=== PATIENT | female | born 1975 | race Caucasian/White ===

== ENCOUNTER 2020-05-27 09:50 | Outpatient (REF) | payer OTHER, SELFPAY ==
--- NOTE | ~2020-05-27 | XR_ITS ---
EXAMINATION: XR BILATERAL HIPS CLINICAL INFORMATION: Bilateral hip x-rays COMPARISON: None TECHNIQUE: 2 views of the chest FINDINGS: Bone alignment is normal. No fracture or dislocation is seen. There is mild bilateral hip arthritis with superior lateral acetabular osteophytes. There are soft tissue calcifications in the pelvis. XR/XR hips ANA min 3V IMPRESSION: Mild bilateral hip arthritis.
== END 2020-05-27 09:51 | disposition home or self-care (01) ==
LOC: HO.XRAY 09:50
PROVIDERS: PCP Internal Medicine; Visit Provider Anesthesiology
DX: M16.0 Bilateral primary osteoarthritis of hip (principal); M96.1 Postlaminectomy syndrome, not elsewhere classified; M47.816 Spondylosis without myelopathy or radiculopathy, lumbar region; M46.1 Sacroiliitis, not elsewhere classified; G43.109 Migraine with aura, not intractable, without status migrainosus; Z79.899 Other long term (current) drug therapy
CPT/HCPCS: 73522; 99202

== ENCOUNTER 2020-06-05 17:44 | Outpatient (REF) | payer OTHER, SELFPAY ==
--- NOTE | ~2020-06-05 | MR_ITS ---
EXAMINATION: MR LUMBAR SPINE WITHOUT CONTRAST CLINICAL INFORMATION: Lower back pain. Bilateral leg pain with right leg numbness. Bilateral toe numbness. Surgery on a herniated disc in 2010. COMPARISON: None TECHNIQUE: MRI of the lumbar spine was obtained using routine sequences without contrast. FINDINGS: VERTEBRAL BODIES AND PARASPINAL STRUCTURES: Normal vertebral body alignment. The lumbar lordosis is maintained. No acute fracture or subluxation. No loss of vertebral body height. Loss of intervertebral disc height with disc desiccation at L5-S1. No abnormal marrow signal. No evidence of acute osseous injury. The visualized paraspinal soft tissues are unremarkable. CONUS MEDULLARIS AND CAUDA EQUINA: Normal, terminating at the level of L1. SPINAL LEVELS: T12-L1: No significant disc bulge. No central canal or neural foraminal stenosis. L1-L2: No significant disc bulge. No central canal or neural foraminal stenosis. L2-L3: No significant disc bulge. No central canal or neural foraminal stenosis. L3-L4: No significant disc bulge. Bilateral facet arthropathy and thickening of the ligamentum flavum without central canal or neural foraminal stenosis. L4-L5: No significant disc bulge. Bilateral facet arthropathy and thickening of the ligamentum flavum without central canal or neural foraminal stenosis. L5-S1: Shallow posterior central disc protrusion with associated annular fissuring. Bilateral facet arthropathy and thickening of the ligamentum flavum with mild bilateral neural foraminal stenosis. MR/MR lumbar spine wo con IMPRESSION: 1. Degenerative disc disease at L5-S1 with a shallow posterior central disc protrusion and associated annular fissuring. Bilateral facet arthropathy and thickening of the ligamentum flavum resulting in mild bilateral neural foraminal stenosis. 2. Bilateral facet arthropathy and thickening of the ligamentum flavum at L3-L4 and L4-L5 without significant central canal or neural foraminal stenosis.
== END 2020-06-05 17:45 | disposition home or self-care (01) ==
LOC: HO.MRI 17:44
PROVIDERS: Visit Provider Anesthesiology
DX: M47.816 Spondylosis without myelopathy or radiculopathy, lumbar region (principal); M96.1 Postlaminectomy syndrome, not elsewhere classified
CPT/HCPCS: 72148

== ENCOUNTER → 2020-07-04 11:27 | Outpatient (BNVA) | payer OTHER, SELFPAY | PROVIDERS: PCP Internal Medicine; Visit Provider Anesthesiology ==

== ENCOUNTER 2020-07-10 11:26 | Outpatient (REF) | payer OTHER, SELFPAY | END 2020-07-10 11:27 | disposition home or self-care (01) | LOC: HO.LAB 11:26 | PROVIDERS: Visit Provider Internal Medicine | DX: Z20.822 Contact with and (suspected) exposure to COVID-19 (principal) | CPT/HCPCS: C9803; U0003; U0005 ==

== ENCOUNTER 2020-07-23 06:26 | Outpatient (REF) | payer OTHER, SELFPAY | END 2020-07-23 06:27 | disposition home or self-care (01) | LOC: HO.RADIR 06:26 | PROVIDERS: Visit Provider Anesthesiology | DX: Z13.89 Encounter for screening for other disorder (principal) ==

== ENCOUNTER 2021-05-14 12:17 | Outpatient (REF) | payer OTHER, SELFPAY ==
[2021-05-14 12:52] LABS: COVID-19 Test Negative (Negative)
== END 2021-05-14 12:18 | disposition home or self-care (01) ==
LOC: HO.LAB 12:17
PROVIDERS: Visit Provider Internal Medicine
DX: Z20.822 Contact with and (suspected) exposure to COVID-19 (principal)
CPT/HCPCS: 87635; C9803

== ENCOUNTER 2023-12-30 10:24 | Emergency (ER) | payer OTHER, SELFPAY ==
--- NOTE | ~2023-12-30 | CT_ITS ---
EXAMINATION: CT ABDOMEN AND PELVIS WITHOUT CONTRAST CLINICAL INFORMATION: Right flank pain. COMPARISON: None available. TECHNIQUE: Multidetector volumetric imaging was performed from the superior aspect of the liver through the pubic symphysis. No IV or oral contrast. Sagittal and coronal reformatted images were obtained on the technologist's workstation. This CT examination was performed using dose optimization techniques as appropriate, variously including the following: *Automated exposure control *Adjustment of mA and/or kV according to patient size (this includes techniques or standardized protocols for targeted exams where dose is matched to indication/reason for exam; i.e. extremities or head) *Use of iterative reconstruction technique DLP: 572 mGy-cm FINDINGS: LUNG BASES: Clear bilaterally. Normal heart size. GE junction. Normal. No effusions. LIVER, GALLBLADDER, AND BILIARY TREE: The liver is normal in size, shape, and attenuation. No focal hepatic lesion or biliary ductal dilatation is present. Gallbladder is surgically absent. PANCREAS: Unremarkable. SPLEEN: Unremarkable. ADRENAL GLANDS: Unremarkable. KIDNEYS AND URETERS: There is no hydronephrosis or hydroureter of either kidney. There are no masses or cysts. In the inferior pole left kidney, there is a 3 mm nonobstructing calculus, and a tiny 2 mm nonobstructing calculus in the left midpole. There are no right renal calculi. Ureters are normal in caliber and course. BLADDER: Suboptimally distended. There is a calculus present measuring 1.1 cm, within the base of the bladder interposed between the urethral sphincter and the urinary bladder lumen. No wall thickening or inflammation. GASTROINTESTINAL TRACT: No acute finding. Normal stomach and duodenum. Normal appendix. Normal small bowel. Normal colon, rectum. ABDOMINAL WALL: No significant hernia is appreciated. Injection granulomata right buttock region. LYMPH NODES: No abnormal lymphadenopathy. VASCULAR: Unremarkable. PELVIC VISCERA: There has been a hysterectomy. No adnexal masses. OSSEOUS STRUCTURES: No acute or suspicious findings. CT/CT abdomen pelvis wo IV con IMPRESSION: 1. No acute abdominal or pelvic abnormality. 2. Tiny nonobstructing left renal calculi. 3. There is a 1.1 cm calculus interposed between the base of the bladder and the right superior aspect of the urethral sphincter muscles. This does not appear to definitively lie within the bladder lumen. This is likely of no clinical significance. 4. Cholecystectomy. 5. Hysterectomy. Electronically signed by: Tai Parks MD 12/30/2023 01:23 PM EDT
[2023-12-30 10:29] VITALS: BP 118/72; PULSE 89; O2SAT 99
[2023-12-30 10:33] VITALS: BP 106/78; PULSE 71; RESP 16; TEMP 36.4; O2SAT 98; BMI 27.1
--- NOTE | 2023-12-30 11:04 | ED_ITS ---
HPI - General Adult General Chief complaint: General Medical Stated complaint: ABD PAIN,ANDINO/MIGRAINE PER EMS History of Present Illness HPI narrative: Patient is 48-year-old female with a history of migraine headaches in the past. Now also has abdominal pain. The headache is frontal in nature very similar to previous bouts of migraine. It is dull. Associated with some nausea. Patient from home. None of her medication at home work. Came to the ED. Patient denies any chest pain. Denies any focal weakness. Did have some abdominal pain mostly on the right side. It is dull in nature. Not associated with any diaphoresis positive nausea positive vomiting. No pain on urination. Patient is from home. Related Data Home Medications ?Medication ?Instructions ?Recorded ?Confirmed acetaminophen 325 mg tablet 650 mg PO Q6H PRN 05/27/20 cetirizine 10 mg tablet 10 mg PO DAILY PRN 05/27/20 diazepam 10 mg tablet 10 mg PO TID PRN 05/27/20 dronabinol 2.5 mg capsule 2.5 mg PO BID 05/27/20 lubiprostone 24 mcg capsule 24 mcg PO BID 05/27/20 (Amitiza) morphine 15 mg tablet,extended 15 mg PO Q8H 05/27/20 release oxycodone 5 mg tablet 5 mg PO Q8H PRN 05/27/20 Allergies Allergy/AdvReac Type Severity Reaction Status Date / Time amitriptyline Allergy itching,red Verified 12/30/23 10:45 ness,rash buprenorphine [From Butrans] Allergy skin Verified 12/30/23 10:45 irritation duloxetine [From Cymbalta] Allergy rash,tachyc Verified 12/30/23 10:45 ardia gadoterate meglumine Allergy diarrhea Verified 12/30/23 10:45 [From Dotarem] gluten Allergy constipatio Verified 12/30/23 10:45 n iodine Allergy rash/swelli Verified 12/30/23 10:45 ng lamotrigine [From Lamictal] Allergy tachycardia Verified 12/30/23 10:45 sumatriptan Allergy tachycardia Verified 12/30/23 10:45 topiramate [From Topamax] Allergy migraines,v Verified 12/30/23 10:45 omiting trazodone Allergy unknown Verified 12/30/23 10:45 lactose AdvReac abdominal Verified 12/30/23 10:45 pain Review of Systems 2 Review of Systems: Positive abdominal pain. Positive headache Yes all other systems are reviewed and are negative [facility] Past Medical History Attestation statement: The following information was validated with the patient. Medical History Migraine aura without headache Bilateral hip joint arthritis Sacroiliitis Spondylosis of lumbar spine Postlaminectomy syndrome, lumbar Social History Social History Smoked in Last 30 Days: No Use of substances other than those prescribed or required for medical reasons: No Advance Directives: No Advance Directives Information Provided: Yes Patient : No Physical Exam ED Vital Signs: Vital Signs - 24 hr 12/30/23 10:33 Temperature 97.5 F Pulse Rate 71 Respiratory Rate 16 Blood Pressure 106/78 Pulse Oximetry 98 Oxygen Delivery Method Room Air BMI result Body Mass Index 27.1 Appearance: Alert. Oriented X3. No acute distress. Eyes: Pupils equal, round and reactive to light. ENT: Pharynx normal. Neck: Normal inspection. Neck supple. No lymph nodes noted. No crepitus CVS: Normal heart rate and rhythm. Pulses normal. Normal S1 and S2 Respiratory: No respiratory distress. Breath sounds normal. No Wheezing. No rales Abdomen: Soft and nontender. No rigidity. No distention. good BS x4 Skin: Skin warm and dry. Normal skin color. Normal skin turgor. Extremities: No lower extremity edema. Neurovascular intact to all extremities. No Lacerations. No Rash Neuro: Oriented X 3. No motor deficit. No sensory deficit. Moving all extermities. No slurred speech Medications Administered Discontinued Medications Generic Name Dose Route Start Last Admin Trade Name Freq PRN Reason Stop Dose Admin Diphenhydramine HCl 50 mg 12/30/23 11:03 12/30/23 12:05 Diphenhydramine Hcl 50 Mg/Ml Vial IVPUSH 12/30/23 11:04 50 mg ONCE ONE Administration Sodium Chloride 1,000 mls @ 999 mls/hr 12/30/23 11:15 12/30/23 12:21 Ns IV 12/30/23 12:15 Infused .Q1H1M ANEUDY Infusion Ketorolac Tromethamine 30 mg 12/30/23 11:03 12/30/23 12:08 Ketorolac Tromethamine 30 Mg/Ml Vial IVPUSH 12/30/23 11:04 30 mg ONCE ONE Administration Metoclopramide HCl 10 mg 12/30/23 11:03 12/30/23 12:09 Metoclopramide Hcl 10 Mg/2 Ml Vial IVPUSH 12/30/23 11:04 10 mg ONCE ONE Administration Ondansetron HCl 4 mg 12/30/23 11:03 12/30/23 12:14 Ondansetron Hcl 4 Mg/2 Ml Vial IVPUSH 12/30/23 11:04 Not Given ONCE ONE Medical Decision Making Medical Decision Making MDM Narrative: I reviewed radiology's reading of the CT scan abdomen pelvis there was no acute pathology. Patient given migraine treatment with good resolution of symptoms. Has a history of migraine pain is very similar to previous bouts it is associated with nausea which has subsided after nausea medications. Will discharge patient home there is no fever no chills to suggest patient has meningitis. Neurologically intact. Symptoms not consistent with having subarachnoid hemorrhage. Patient to be discharged home Differential Diagnosis Differential Diagnoses: The differential diagnosis associated with the presentation includes Migraine headache, abdominal pain, intracranial bleed Admission/Observation Consideration of admission/observation: Escalation of care including admission/observation considered Lab Data [facility] Lab Attestation statement: I reviewed the patient's lab results. 12/30/23 11:13 12/30/23 11:13 Labs: Lab Results 12/30/23 12/30/23 Range/Units 11:13 12:14 WBC 6.6 Cancelled (4.8-10.8) X10*3/uL RBC 4.56 Cancelled (4.20-5.50) X10*6/uL Hgb 12.7 Cancelled (12.0-16.0) g/dl Hct 38.7 Cancelled (37.0-47.0) % MCV 84.9 Cancelled (80.0-98.0) fL MCH 27.9 Cancelled (27.0-33.0) pg MCHC 32.8 Cancelled (31.0-35.0) g/dl RDW 13.4 Cancelled (11.0-16.0) % Plt Count 242 Cancelled (160-400) X10*3/uL MPV 10.0 Cancelled (9.4-12.3) fL Immature Gran % (Auto) 0.2 Cancelled (0.0-0.4) % Neut % (Auto) 51.7 Cancelled (45-73) % Lymph % (Auto) 38.8 Cancelled (20-40) % Chase % (Auto) 6.5 Cancelled (2-11) % Eos % (Auto) 2.3 Cancelled (0-4) % Baso % (Auto) 0.5 Cancelled (0-2) % Lymph # (Auto) 2.6 Cancelled (1.2-4.9) X10*3/uL Chase # (Auto) 0.4 Cancelled (0.1-1.2) X10*3/uL Eos # (Auto) 0.2 Cancelled (0.0-0.4) X10*3/uL Baso # (Auto) 0.0 Cancelled (0.0-0.2) X10*3/uL Abs Immat Gran (auto) 0.01 Cancelled (0.00-0.03) X10*3/uL Absolute Neuts (auto) 3.4 Cancelled (2.0-8.3) x10*3/uL Absolute Nucleated RBC 0.000 Cancelled (0.0-0.012) X10*3/uL Nucleated RBC % (auto) 0.0 Cancelled (0.0-0.2) /100WBC Hold Purple Top SEE NOTE Sodium 139 (135-145) mmol/L Potassium 4.7 (3.3-5.1) mmol/L Chloride 109 H (96-108) mmol/L Carbon Dioxide 21 L (22-29) mmol/L Anion Gap 14 (12-20) BUN 13 (9-16) mg/dL Creatinine 0.83 (0.5-1.4) mg/dL Estim Creat Clear Calc 90.4 Estimated GFR > 60 Random Glucose 90 (60-115) mg/dL Calcium 9.2 (8.4-10.2) mg/dL Total Bilirubin 0.3 (0.0-1.0) mg/dL Direct Bilirubin 0.1 (0.0-0.5) mg/dL AST 88 H (5-31) U/L ALT 88 H (0-31) U/L Alkaline Phosphatase 68 (39-117) U/L Total Protein 7.7 (6.5-8.0) g/dL Albumin 4.1 (3.5-5.0) g/dL Lipase 8 (8-78) U/L Independent Interpretation I performed an independent interpretation of an: CT Scan (Patient's CT scan to me was grossly negative) Radiology Impression Discussion of test interpretation with radiology: I have reviewed the radiologist's reading. Chronic Conditions Abdominal pain Social Determinants Patient?s care significantly limited by Social Determinants of Health including: Problems related to primary support group Discharge Plan Discharge Clinical Impression: Headache, migraine, Abdominal pain Patient Disposition: Home, Self-Care Instructions: Abdominal Pain (ED), Migraine Headache (ED) Referrals: Freddie Lam MD [Primary Care Provider] - 01/04/24 Print Language: Kyrgyz
[2023-12-30] MEDS: 0.9 % Sodium Chloride 1,000 ML 999 ML IV (11:19)
[2023-12-30 11:22] LABS: MANUAL DIFF FLAG NO
[2023-12-30 11:27] LABS: Basophils Percent Auto 0.5 % (0-2); Eosinophils Absolute Auto 0.2 X10*3/uL (0.0-0.4); Eosinophils Percent Auto 2.3 % (0-4); Hematocrit 38.7 % (37.0-47.0); Hemoglobin 12.7 g/dl (12.0-16.0); Imm Gran Abs Auto 0.01 X10*3/uL (0.00-0.03); Imm Gran Pct Auto 0.2 % (0.0-0.4); Lymphocytes Absolute Auto 2.6 X10*3/uL (1.2-4.9); Lymphocytes Percent Auto 38.8 % (20-40); Mean Corpuscular HGB Conc 32.8 g/dl (31.0-35.0); Mean Corpuscular Hemoglobin 27.9 pg (27.0-33.0); Mean Corpuscular Volume 84.9 fL (80.0-98.0); Monocytes Absolute Auto 0.4 X10*3/uL (0.1-1.2); Monocytes Percent Auto 6.5 % (2-11); Neutrophils Absolute Auto 3.4 x10*3/uL (2.0-8.3); Neutrophils Percent Auto 51.7 % (45-73); Platelet Count 242 X10*3/uL (160-400); Red Blood Count 4.56 X10*6/uL (4.20-5.50); Red Cell Distribution Width 13.4 % (11.0-16.0); White Blood Count 6.6 X10*3/uL (4.8-10.8)
[2023-12-30 11:37] LABS: Lipase 8 U/L (8-78)
[2023-12-30] MEDS: diphenhydrAMINE HCL 50 MG/ML VIAL IVPUSH (12:05)
[2023-12-30] MEDS: Ketorolac Tromethamine 30 MG/ML VIAL IVPUSH (12:08)
[2023-12-30] MEDS: Metoclopramide HCl 10 MG/2 ML VIAL IVPUSH (12:09)
[2023-12-30 12:43] LABS: Alanine Aminotransferase 88 U/L (0-31); Albumin Level 4.1 g/dL (3.5-5.0); Alkaline Phosphatase 68 U/L (39-117); Anion Gap 14 (12-20); Aspartate Amino Transferase 88 U/L (5-31); Bilirubin Direct 0.1 mg/dL (0.0-0.5); Bilirubin Total 0.3 mg/dL (0.0-1.0); Blood Urea Nitrogen 13 mg/dL (9-16); Calcium 9.2 mg/dL (8.4-10.2); Carbon Dioxide 21 mmol/L (22-29); Chloride 109 mmol/L (96-108); Creatinine Clr Calc Pharmacy 90.4; Estimated Glomerular Filt Rate > 60; Glucose Random 90 mg/dL (60-115); Potassium 4.7 mmol/L (3.3-5.1); Sodium 139 mmol/L (135-145); Total Protein 7.7 g/dL (6.5-8.0)
[2023-12-30 14:38] VITALS: BP 106/78; PULSE 71; RESP 16; TEMP 36.4; O2SAT 98
== END 2023-12-30 14:41 | disposition home or self-care (01) ==
PROVIDERS: Emergency Provider Emergency Medicine Emergency Medical Services; PCP Internal Medicine
DX: G43.909 Migraine, unspecified, not intractable, without status migrainosus (principal); R10.9 Unspecified abdominal pain; R11.2 Nausea with vomiting, unspecified
CPT/HCPCS: 36415; 74176; 80053; 82248; 83690; 85025; 96361; 96374; 96375; 99284; J1200; J1885; J2765

== ENCOUNTER → 2023-12-30 11:03 | Outpatient (BNV) | payer OTHER, SELFPAY | PROVIDERS: Emergency Provider Emergency Medicine Emergency Medical Services; PCP Internal Medicine; Visit Provider Radiology Diagnostic Radiology | DX: R10.9 Unspecified abdominal pain (principal) | CPT/HCPCS: 74176 ==

== ENCOUNTER 2024-10-31 14:36 | Emergency (ER) | payer OTHER, SELFPAY ==
--- NOTE | ~2024-10-31 | XR_ITS ---
EXAMINATION: XR ABDOMEN KUB CLINICAL INDICATION: no BM x10 days, vomiting COMPARISON: None available. TECHNIQUE: AP view of the abdomen. FINDINGS: Patient's large body habitus. There is gas throughout the intestine. No air-fluid levels. No gross free air beneath diaphragm. Vascular clips right upper quadrant abdomen likely laparoscopic cholecystectomy procedure. S-shaped curvature of the lumbar spine which could be positional. Degenerative changes in the coxofemoral joints and symphysis pubis. XR/XR KUB IMPRESSION: No intestinal obstruction pattern. Electronically signed by: Michael Vail MD 10/31/2024 03:18 PM EDT
--- NOTE | ~2024-10-31 | CT_ITS ---
CLINICAL HISTORY: diffuse abd pain r o colitis CT abdomen and pelvis with contrast Comparison: CT/OR/SR - CT ABDOMEN PELVIS WITHOUT IV CONTRAST - 12/30/23 11:15 EDT Findings: Mild atelectasis scattered pulmonary nodules in the lingula and left lower lobe measuring no more than 2 mm. Per Fleischner criteria: Low-risk patients: No routine follow-up required. High-risk patients: Optional CT at 12 months. Hepatomegaly. Ill-defined possible small 6 mm cystic focus proximal pancreas best appreciated on coronal image 31. Finding is nonspecific. The majority of the pancreas is obscured from visualization by the overlying bowel gas. Small left-sided hypodense renal cysts. No urolithiasis or significant hydronephrosis Mildly diffuse colonic mural thickening with mucosal hyperemia and air-fluid levels throughout may reflect early colitis. No bowel obstruction. Post hysterectomy. Normal appendix. Mildly distended bladder. The bones are intact. Right-sided subcutaneous calcifications along the posterior hip. Postcholecystectomy. IMPRESSION: 1. Possible early mildly diffuse colitis. 2. Additional findings described. This document has been electronically signed by: Juan Jose Donovan MD on 10/31/2024 18:58:01
[2024-10-31 14:41] VITALS: BP 134/85; PULSE 92; RESP 16; TEMP 36.8; O2SAT 100; BMI 27.8
--- NOTE | 2024-10-31 14:48 | ED.ABDPAIN ---
HPI - Abdominal Pain General Chief Complaint: Abdominal Pain Stated Complaint: constipation, abd pain Time Seen by Provider: 10/31/24 15:42 Source: patient and family Mode of arrival: ambulatory Limitations: language barrier (pressure vessel inspector used) History of Present Illness ED Provider: Michelle maddox HPI narrative: 49-year-old female here today states she has not pooped in 10 days states her abdomen is tender distended intermittent some liquid after using multiple [id number] remedies but has not had a real bowel movement. She has a history of constipation but usually has bowel movement 2 days. For the past 2 days she has been vomiting and not really eating or drinking because she is in so much pain. She denies any fevers chills chest pain respiratory distress. Pain is only getting worse. Gradual onset of symptoms. MD elicited complaint: abdominal pain Related Data Home Medications ?Medication ?Instructions ?Recorded ?Confirmed acetaminophen 325 mg tablet 650 mg PO Q6H PRN 05/27/20 cetirizine 10 mg tablet 10 mg PO DAILY PRN 05/27/20 diazepam 10 mg tablet 10 mg PO TID PRN 05/27/20 dronabinol 2.5 mg capsule 2.5 mg PO BID 05/27/20 lubiprostone 24 mcg capsule 24 mcg PO BID 05/27/20 (Amitiza) morphine 15 mg tablet,extended 15 mg PO Q8H 05/27/20 release oxycodone 5 mg tablet 5 mg PO Q8H PRN 05/27/20 Previous Rx's ?Medication ?Instructions ?Recorded amoxicillin 875 mg-potassium 1 tab PO Q12H #10 tabs 10/31/24 clavulanate 125 mg tablet peg 3350-electrolytes 236 240 ml PO Q10M PRN constipation 10/31/24 gram-22.74 gram-6.74 gram-5.86 #4,000 mL gram solution (Golytely) Allergies Allergy/AdvReac Type Severity Reaction Status Date / Time amitriptyline Allergy itching,red Verified 10/31/24 14:47 ness,rash buprenorphine (From Butrans) Allergy skin Verified 10/31/24 14:47 irritation duloxetine (From Cymbalta) Allergy rash,tachyc Verified 10/31/24 14:47 ardia gadoterate meglumine (From Allergy diarrhea Verified 10/31/24 14:47 Dotarem) gluten Allergy constipatio Verified 10/31/24 14:47 n iodine Allergy rash/swelli Verified 10/31/24 14:47 ng lamotrigine (From Lamictal) Allergy tachycardia Verified 10/31/24 14:47 sumatriptan Allergy tachycardia Verified 10/31/24 14:47 topiramate (From Topamax) Allergy migraines,v Verified 10/31/24 14:47 omiting trazodone Allergy unknown Verified 10/31/24 14:47 lactose AdvReac abdominal Verified 10/31/24 14:47 pain Review of Systems Review of Systems Constitutional : No Fever, No Chills ENT/Mouth : No sore throat, No Rhinorrhea Eyes: No Eye Pain, No Swelling, No Redness Cardiovascular : No Chest Pain, No SOB Respiratory : No Cough, No Sputum Gastrointestinal : Positive Nausea, positive Vomiting, No Diarrhea, positive abdominal Pain Genitourinary : No Dysuria, No Hematuria Musculoskeletal : No joint pain, No Myalgias, No Joint Swelling Skin : No Skin Lesions, positive skin rash Neuro : No Weakness, No Numbness, No Headache All other systems reviewed and are negative [facility], [facility] Past Medical History Medical History Migraine aura without headache Bilateral hip joint arthritis Sacroiliitis Spondylosis of lumbar spine Postlaminectomy syndrome, lumbar Social History Social History Smoked in Last 30 Days: No Use of substances other than those prescribed or required for medical reasons: No Advance Directives: No Advance Directives Information Provided: No Do you have a plan to hurt others: No Plan Physical Exam ED Vital Signs: Vital Signs - 24 hr 10/31/24 14:41 10/31/24 16:00 10/31/24 19:21 Temperature 98.2 F 97.0 F 97.0 F Pulse Rate 92 80 80 Respiratory Rate 16 17 17 Blood Pressure 134/85 129/86 129/86 Pulse Oximetry 100 95 95 Oxygen Delivery Method Room Air Room Air Room Air BMI result Body Mass Index 27.8 Appearance: Alert. Oriented X3. No acute distress. Eyes: Pupils equal, round and reactive to light. ENT: Pharynx normal. Neck: Normal inspection. Neck supple. CVS: Normal heart rate and rhythm. Pulses normal. Respiratory: No respiratory distress. Breath sounds normal. Abdomen: Abdomen mildly distended with tenderness noted. No peritoneal signs noted. Good bowel sounds. No stool noted in rectal vault. No blood noted. Skin: Skin warm and dry. Normal skin color. Extremities: No lower extremity edema. No calf ttp FROM of extemities Neuro: Oriented X 3. Course Course Course Narrative: This is a Rapid Medical Examination (RME) performed by Maura Donaldson PA-C in triage. Full HPI, ROS, assessment and treatment plan per primary provider in the Main ED. Hx: 49 yo F here from for RLQ abd pain x11 days, now becoming more diffuse. one episode of vomiting this morning. no BM in 11 days. not passing flatus. surgical hx includes hysterectomy & cholecystctomy. PE/vitals: abdomen firm, distended, active bs. Plan: labs, KUB Reevaluation(s) Reevaluation #1: Ivan Pathak MD: I was asked to participate in the care of this patient only to assist with difficult IV access. See procedure note below Ultrasound Guided Peripheral Intravenous Catheter Placement Indication: Intravenous Access Location: Right ??Vascular Location of Catheter Tip: Basilic Provider: Self I was approached by nursing staff and informed that multiple unsuccessful attempts had been made to establish IV access in the patient. The patients arm was surveyed with the ultrasound for verification of vessel collapsibility, patency, depth and caliber, as well as identification of nearby structures. The target area was prepped with chlorhexidine. A tourniquet was placed proximally on the extremity. Under real-time ultrasound guidance, an 20 G 2.25 inch nontunneled catheter ? was advanced into the target vein. Dark blood was visualized in the flash chamber. The catheter was easily advanced into the vein. The catheter was evacuated of air and flushed with sterile saline. The catheter was secured in place with a tegaderm. The patient tolerated the procedure well and there were no complications. Estimated Blood Loss: 1mL Total Time for Procedure: 5min Images Stored CPT: 24885; 98225 Reevaluation #2: patient received in sign-out pending CT scan. This shows possible early colitis, I feel clinically this is not a likely cause of her pain. She is quite constipated and she may have some mild wall thickening due to the degree of constipation. She reports not having had a bowel movement in 10 days. We will treat with GoLYTELY but under strict precautions to discontinuing this is soon as she has a good bowel movement. she should return for any fevers or chills, this was discussed with the patient using a pressure vessel inspector. the patient does have symptoms of a UTI, there was no bacteria seen but she does have 21-50 white cells with large esterase and some blood. We can treat with Augmentin which would cover colitis but also with a UTI Time: 19:04 Medical Decision Making Medical Decision Making [facility] Narrative: This is a 49-year-old female who has had a past medical history of constipation cholecystectomy and migraines. Patient unable to have a bowel movement in the past 10 days. She has a distended abdomen decreased p.o. intake with nauseousness and vomiting. Her abdomen is soft she has no peritoneal signs at this time. Patient's labs are unremarkable shows 3+ leuks in her urine patient ordered IV Dilaudid 1 mg 4 mg of Zofran IV 1 L of normal saline in and abdominal pelvis CT for further evaluation and treatment. Patient is signed out to Dimitri Crooks physician financial planning assistant Differential Diagnosis Differential Diagnoses: The differential diagnosis associated with the presentation includes (Colitis , diverticulitis Constipation obstruction mass) Lab Data 10/31/24 15:05 10/31/24 15:05 Labs: Lab Results 10/31/24 10/31/24 Range/Units 15:05 15:10 WBC 7.4 (4.8-10.8) X10*3/uL RBC 5.05 (4.20-5.50) X10*6/uL Hgb 13.7 (12.0-16.0) g/dl Hct 41.0 (37.0-47.0) % MCV 81.2 (80.0-98.0) fL MCH 27.1 (27.0-33.0) pg MCHC 33.4 (31.0-35.0) g/dl RDW 13.5 (11.0-16.0) % Plt Count 235 (160-400) X10*3/uL MPV 9.8 (9.4-12.3) fL Immature Gran % (Auto) 0.1 (0.0-0.4) % Neut % (Auto) 51.7 (45-73) % Lymph % (Auto) 37.7 (20-40) % Jack % (Auto) 6.5 (2-11) % Eos % (Auto) 3.6 (0-4) % Baso % (Auto) 0.4 (0-2) % Lymph # (Auto) 2.8 (1.2-4.9) X10*3/uL Jack # (Auto) 0.5 (0.1-1.2) X10*3/uL Eos # (Auto) 0.3 (0.0-0.4) X10*3/uL Baso # (Auto) 0.0 (0.0-0.2) X10*3/uL Abs Immat Gran (auto) 0.01 (0.00-0.03) X10*3/uL Absolute Neuts (auto) 3.8 (2.0-8.3) x10*3/uL Absolute Nucleated RBC 0.000 (0.0-0.012) X10*3/uL Nucleated RBC % (auto) 0.0 (0.0-0.2) /100WBC Sodium 140 (135-145) mmol/L Potassium 4.2 (3.3-5.1) mmol/L Chloride 106 (96-108) mmol/L Carbon Dioxide 23 (22-29) mmol/L Anion Gap 15 (12-20) BUN 12 (9-16) mg/dL Creatinine 0.77 (0.5-1.4) mg/dL Estim Creat Clear Calc 97.6 Estimated GFR > 60 Random Glucose 89 (60-115) mg/dL Calcium 9.6 (8.4-10.2) mg/dL Magnesium 2.2 (1.6-2.6) mg/dL Total Bilirubin 0.5 (0.0-1.0) mg/dL AST 55 H (5-31) U/L ALT 60 H (0-31) U/L Alkaline Phosphatase 82 (39-117) U/L Total Protein 8.1 H (6.5-8.0) g/dL Albumin 4.6 (3.5-5.0) g/dL Lipase 20 (8-78) U/L Beta HCG, Quant 13 mIU/mL Urine Color Yellow Urine Appearance Clear Urine pH 6.5 (5.0-9.0) Ur Specific [place] 1.015 (1.005-1.025) Urine Protein Negative (Neg-Trace) mg/dL Urine Glucose (UA) Negative (Negative) mg/dL Urine Ketones Negative (Negative) mg/dL Urine Blood Trace H (Negative) Urine Nitrite Negative (Negative) Ur Leukocyte Esterase Large (3+) H (Negative) Urine RBC 0-2 (0-2) /HPF Urine WBC 21-50 H (0-5) /HPF Ur Squamous Epith Cells 3-5 (0-2) /HPF Urine Bacteria None Seen (None Seen) Hyaline Casts 0-2 (0-2) /LPF Medications Administered Discontinued Medications Generic Name Dose Route Start Last Admin Trade Name Arben PRN Reason Stop Dose Admin Hydromorphone HCl 1 mg 10/31/24 16:16 10/31/24 16:54 Hydromorphone Hcl 1 Mg/Ml Syringe IVPUSH 10/31/24 16:17 1 mg ONCE ONE Administration Protocol Sodium Chloride 1,000 mls @ 999 mls/hr 10/31/24 16:16 10/31/24 16:55 Ns IV 10/31/24 17:16 999 mls/hr .Q1H1M ONE Administration Iohexol 100 ml 10/31/24 18:18 10/31/24 18:19 Iohexol 350 Mg/Ml 100 Ml Infus..Btl IV 10/31/24 18:19 85 ml ONCE ONE Administration Ondansetron HCl 4 mg 10/31/24 16:16 10/31/24 16:54 Ondansetron Hcl 4 Mg/2 Ml Vial IVPUSH 10/31/24 16:17 4 mg ONCE ONE Administration Discharge Plan Discharge Clinical Impression: UTI (urinary tract infection), Constipation Patient Disposition: Home, Self-Care Instructions: Constipation (ED), Urinary Tract Infection in Women (ED) Additional Instructions: your workup in the ER today was reassuring. Your pain is most consistent with constipation It also appears that you may have a UTI. Take Augmentin twice daily for 5 days. Drink lots of fluids, increase fiber intake in your diet. Take GoLYTELY, 1 cup every 10-15 minutes until you have a sufficient bowel movement. Stop taking this if you start to have diarrhea return for new or worsening symptoms Prescriptions: New amoxicillin-pot clavulanate 875-125 mg tablet 1 tab PO Q12H Qty: 10 0RF peg 3350-electrolytes [Golytely] 236-22.74-6.74 -5.86 gram recon soln 240 ml PO Q10M PRN (Reason: constipation) Qty: 4000 0RF Rx Instructions: until fecal effluent is clear Interventions: ED Discharge Assessment Last Done: 10/31/24 19:21 Discharge Date/Time: 10/31/24 19:25 Print Language: Egyptian
[2024-10-31 15:13] LABS: MANUAL DIFF FLAG NO
[2024-10-31 15:15] LABS: Hematocrit 41.0 % (37.0-47.0); Hemoglobin 13.7 g/dl (12.0-16.0); Imm Gran Abs Auto 0.01 X10*3/uL (0.00-0.03); Imm Gran Pct Auto 0.1 % (0.0-0.4); Lymphocytes Absolute Auto 2.8 X10*3/uL (1.2-4.9); Mean Corpuscular HGB Conc 33.4 g/dl (31.0-35.0); Mean Corpuscular Hemoglobin 27.1 pg (27.0-33.0); Mean Corpuscular Volume 81.2 fL (80.0-98.0); NRBC Abs Auto 0.000 X10*3/uL (0.0-0.012); NRBC Pct Auto 0.0 /100WBC (0.0-0.2); Platelet Count 235 X10*3/uL (160-400); Red Blood Count 5.05 X10*6/uL (4.20-5.50); White Blood Count 7.4 X10*3/uL (4.8-10.8)
[2024-10-31 15:18] LABS: Appearance Urine Clear; Glucose Urine UA Negative (Negative); PH 6.5 (5.0-9.0); Specific Gravity - Urine 1.015 (1.005-1.025); UMIC TRIGGER UACC YES
[2024-10-31 15:23] LABS: UACC Culture Trigger YES
[2024-10-31 15:36] LABS: Alanine Aminotransferase 60 U/L (0-31); Albumin Level 4.6 g/dL (3.5-5.0); Alkaline Phosphatase 82 U/L (39-117); Anion Gap 15 (12-20); Aspartate Amino Transferase 55 U/L (5-31); Blood Urea Nitrogen 12 mg/dL (9-16); Calcium 9.6 mg/dL (8.4-10.2); Carbon Dioxide 23 mmol/L (22-29); Chloride 106 mmol/L (96-108); Creatinine Clr Calc Pharmacy 97.6; Estimated Glomerular Filt Rate > 60; Lipase 20 U/L (8-78); Magnesium 2.2 mg/dL (1.6-2.6); Potassium 4.2 mmol/L (3.3-5.1); Sodium 140 mmol/L (135-145); Total Protein 8.1 g/dL (6.5-8.0)
[2024-10-31 16:00] VITALS: BP 129/86; PULSE 80; RESP 17; TEMP 36.1; O2SAT 95
--- NOTE | 2024-10-31 16:36 | PC.NURSE ---
New orders received for CT w/ contrast, pain meds, and antiemetic. IV attempted, awaiting placement via U/S
--- OUTSIDE RECORDS SUMMARY | 2024-10-31 16:38 | XMS_ITS | Clinical Summary ---
Author Organization [facility] Address [address] [place] [address] Care Team Providers Care Beef Splitter Name Role Phone Unavailable Primary Care Provider Unavailabl e Allergies No known active allergies Medications Medication Sig Dispensed Refills Start Date End Date Status ibuprofen (ADVIL,MOTRIN) 600 MG tablet Take 1 tablet (600 mg total) by mouth every 8 (eight) hours as needed for pain. One tid prn pain 20 tablet 0 08/01/2018 Active methocarbamol (ROBAXIN) 750 MG tablet Take 1 tablet (750 mg total) by mouth 4 (four) times a day. 30 tablet 0 08/01/2018 Active Social History Tobacco Use Types Packs/Day Years Used Date Smoking Tobacco: Never Smokeless Tobacco: Never Alcohol Use Standard Drinks/Week Comments Yes 0 (1 standard drink = 0.6 oz pur e alcohol) Sex and Gender Information Value Date Recorded Sex Assigned at Female 07/31/2018 9:56 PM EDT Gender Identity Not on file Sexual Orientation Not on file Last Filed Vital Signs Vital Sign Reading Time Taken Comments Blood Pressure 122/89 07/31/2018 9:42 PM EDT Pulse 91 07/31/2018 9:42 PM EDT Temperature 37 C (98.6 F) 07/31/2018 9:42 PM EDT Respiratory Rate 16 07/31/2018 9:42 PM EDT Oxygen Saturation 100% 07/31/2018 9:42 PM EDT Inhaled Oxygen Concentration - - Weight - - Height - - Body Mass Index - - Plan of Treatment Health Maintenance Due Date Last Done Comments Hepatitis B Vaccines (1 of 3 - 3-dose series) 1976 Hepatitis C Screening 1975 COVID-19 Vaccine (#1) 1976 Depression Screening 1988 Preventative Health Evaluation 01/28/1994 DTap / Tdap / Td (1 - Tdap) 01/28/1995 Cervical Cancer Screening (P ap Smear) 01/28/1997 Colon Cancer Screening (Colonoscopy) 01/28/2021 Influenza Vaccine (#1) 2024 Pneumococcal Vaccine Aged Out No long er eligible based on patient's age to complete this topic RSV Ped < 20 months Aged Out No longe r eligible based on patient's age to complete this topic [address] [place] [id number] Abdelrahman Lacey TPL/AUTO Self [address] [place] [address] [place] [id number]
--- OUTSIDE RECORDS SUMMARY | 2024-10-31 16:38 | XMS_ITS | Clinical Summary ---
Author Organization [facility] Address [address] [place] [address] Care Team Providers Care [employer] Supervisor Name Role Phone Alba Faulkner PA-C Primary Care Provider [phone] Source Comments PLEASE NOTE, if this patient is a minor, it may be UNLAWFUL to discuss sensitive information that is contained in these records (such as FAMILY PLANNING, MENTAL HEALTH or SUBSTANCE ABUSE) with the minor patient's parent or other person without the patient's specific authorization.[facility] Allergies Active Allergy Reactions Criticality Noted Date Comments Iodine 02/01/2014 Medications omeprazole (PRILOSEC) [address] capsuleIndications :Gastroesophageal reflux disease without esophagitis Take 1 Cap by mouth every morning before breakfast. Do not crush or chew. 30 Cap 2 09/04/19 15 Active caneIndications:Un steady gait Diagnosis 781.2 unsteady gait. For a lifetime. Quantity:1 1 Device 0 09/04/19 15 Active tens deviceIndications: Chronic low back pain,Displacement of intervertebral disc, site unspecified, without myelopathy Diagnosis:724.2 for a lifetime. Quantity: 1 device. 1 Device 0 10/09/19 15 Active walkerIndications: Unsteady gait Diagnosis 781.2 for a lifetime. Quantity: 1 1 Each 0 10/09/19 15 Active Miscellaneous Medical Supply miscIndications:Ch ronic low back pain,Unsteady gait by miscellaneous route once daily. 1 shower chair any soze without wheels. Diagnosis : 724.2 and 781.2 quantity: 1 for a l;ifetime. 1 Each 0 10/09/19 15 Active walkerIndications: Abnormality of gait Diagnosis 781.2 for a lifetime. Quantity: 1 walker with wheels and a seat 1 Each 0 10/10/19 15 Active chlorhexidine (PERIDEX) 0.12 % solution 1 10/26/19 15 Active diazepam (VALIUM) 10 mg tabletIndications: Depression Take 1 Tab by mouth 2 (two) times daily as needed for anxiety. 10/31/19 15 Active FLUoxetine (PROZAC) 20 mg capsuleIndications :Depression Take 1 Cap by mouth once daily. 10/31/19 15 Active Miscellaneous Medical Supply miscIndications:Bi lateral swelling of feet by miscellaneous route 1 to 2 (one to two) times daily. Foot warmers Diagnosis:729.81 Quanitity: 1 pair for a lifetime. 1 Each 0 01/09/20 15 Active Miscellaneous Medical Supply miscIndications:Ab normal gait by miscellaneous route 1 to 2 (one to two) times daily. 26 inch Barber Shop Manager. Diagnosis:781.2 quantity: 1 for a lifetime. 1 Each 0 01/09/20 15 Active cyclobenzaprine (FLEXERIL) 5 mg tabletIndications: Chronic low back pain Take 1 Tab by mouth 2 (two) times daily as needed for muscle spasms. 30 Tab 0 03/20/19 16 Active cholecalciferol, vitamin D3, 2,000 unit capsule Take 1 Cap by mouth once daily. 30 Cap 6 03/29/19 16 Active docusate sodium (COLACE) 100 mg capsule 0 04/04/19 16 Active polyethylene glycol (GLYCOLAX, MIRALAX) 17 gram/dose powder 1 04/04/19 16 Active TENS UNIT ELECTRODES (TENS UNITS ELECTRODES PADS) 2.2 X 2.5 Indications:Chron ic low back pain Use with tens unit twice per week DX chronic low back pain 724.2 Dx herniated disk 722.2 24 Each 0 04/10/19 16 Active fluticasone (FLOVENT HFA) 110 mcg/actuation inhalerIndications :Mild intermittent asthma without complication ([facility]) Inhale 1 Puff into the lungs 2 (two) times daily. 1 Inhaler 3 04/10/19 16 Active gabapentin (NEURONTIN) 800 mg tablet Take 1 Tab by mouth 2 (two) times daily. 60 Tab 1 10/08/19 16 Active butalbital-acetami nophen-caff (FIORICET, ESGIC) 50-325-40 mg per tablet TOME YOLANDA TABLETA POR VIA ORAL CADA SEIS HORAS CUANDO SEA NECESARIO 30 Tab 05/21/19 18 Active ibuprofen (ADVIL,MOTRIN) 800 mg tablet TOME YOLANDA TABLETA POR VIA ORAL LYN VECES AL EDUARDO CUANDO SEA NECESARIO PARA EL DOLOR 90 Tab 3 06/15/19 18 Active traMADol (ULTRAM) 50 mg tablet TOME YOLANDA TABLETA POR VIA ORAL CUATRO VECES AL EDUARDO CUANDO SEA NECESARIO PARA EL DOLOR 60 Tab 07/09/19 18 Active Active Problems Problem Noted Date Diagnosed Date Sleep disorder 04/23/2015 Overview (04/23/2015): Seen at [facility] by Dr Ruby on 04/11/2015: Assessment: migraine with aura, fibromyalgia, and central sleep apnea in condition classified elsewhere. Impression: I will trial her on topiramate 25 mg oral 1 tablet BID for 30 days Inderal LA 60 mg oral 1 cap extended release qd for 30 days. Echo to rule out sleep apnea- echo normal. Stopped amitriptyline due to allergy At risk for cancer 03/25/2015 Overview (05/06/2015): Seen by Dr. Bertrand on 03/11/2015 at : Pt has a 5.3% risk due to family history and gene variant. Pt was referred to Dr Justine Tejada who is a extrusion die repairer oncologist. Next appt Apr 03, 2015 Pt saw extrusion die repairer oncologist DR. Adilene QUIROS on 04/22/2015: Pt will undergo robot assisted total laparoscopic hysterectomy bilateral salpingo-oophrectomy with possible staging, lymph node dissection and IP port placement if any malignant cells are found. Risks, benefits, and surgery were discussed . Operative report: Done at on 05/01/2015: Uterus, cervix, bilat tubes, and ovaries removed by Dr Tejada. Asthma, mild intermittent ([facility]) 01/08/2015 Displacement of intrauterine contraceptive devic e 11/27/2014 Overview (11/27/2014): Pt saw Dr Eligio Head MD at [address] [place] [address] on 11/12/2014: Transvaginal US done: One essure is noted properly in place on the left cornual tubal interface the othe ris in the right tube of the right proximal tube or the serosa. Thoracic neuritis T11-T12 nerve block performed. Advised to use condoms during intercourse as pt is unprotected. Advised to follow up. Gastritis 11/27/2014 Overview (11/27/2014): Being seen by [facility]: Dr. Romano: Endoscopy and colonoscopy done 11/23/2014: EGD: Normal esophagus, erosion in the pyloris compatible with gastic erosion. Erythema in the duodenal bulb. Colonoscopy: Normal mucosa in the colon. Seborrheic keratoses 08/30/2014 Overview (08/30/2014): Saw Dr Rufifn on 08/13/2014 which diagnosed with this issue on scalp: Would like to observe this lesion. Pt sent for second opinion. Pelvic pain 08/09/2014 Overview (09/03/2014): Evaluated by the SCHOOL RESOURCE OFFICER at [facility] on 08/03/2014: Going to do an US/pap/ for postcoital bleeding and pelvic pain. Pt reports that she would like to everything taken out. F/u in 2 weeks. History of Papanicolaou smear of cervix 06/26/19 15 Overview (08/09/2014): Done 06/12/2014: negative for intraepithelial lesion of malignancy. Done by kennedy Castaneda MD Negative for HPV BV present. Evaluated by the SCHOOL RESOURCE OFFICER at [facility] on 08/03/2014: Going to do an US/pap/ for postcoital bleeding and pelvic pain Pt reports that she would like to everything taken out. F/u in 2 weeks. H/O mammogram 03/31/2014 Overview (04/29/2015): PT AT INCREASE RISK FOR CANCER PER GENETICS AT . She should have mammogram done yearly beginning now. Done 03/24/2014 at [facility]; Impression: no mammographic evidence of malignancy. Due 03/24/2015 Dense breasts. BIRADS category 2 benign findings. Done 04/17/2015: Possible developing foal assymetry within the upper outer quadrant of the left breast. Recommend additional mammographic assessment to include ML and spot compression views of the left breast with US to follow if this finding persists. Incomplete and needs reevaluation. Done 04/23/2015: No mammographic evidence of malignancy. BIRADS code class 1: negative Migraine 02/26/2014 Vitamin D deficiency disease 02/02/2014 Chronic low back pain 02/01/2014 Overview (09/27/2015): Pt had discectomy April 2010. Fell 12/2013: MRI done 01/08/14 @[facility]: impression: L5-S1 level broad base posterior disc bulge with focal central posterior disc herniation, minimal bilat neural foraminal narrowing, and right partial laminectomy sequela. Pt referred to neurosurgery now with Dr. Angelo Cruz at [address] [place] [address] drive Pt currently goes to PT at [facility] - last visit in December. Saw Dr. Cruz at neurosurgery on 03/19/2014- impression: Her pain does not match what the imaging says. Plan: Will place a referral to pain management for spinal cord stimulator. Toxicology screen Pt will contact Dr. Viraj leggett for evaluation of potential spinal cord stimulator trial. Increase gabapentin over the course of 10 days to 800 TID then titrating schedule. Avoid rest greater then [address] Emile Dennison from [facility]: Advised no treatment at this time, but continue with PT. No intermediate use of opioids would promote health of function. Pain management consult at [facility] [address] [facility] on 03/26/14: Dr. Osborn(Pain Management)- referred by Dr. Cruz: saw Dr. Cruz 03/19/14 suggested no surgical intervention at this time. Plan: caudal epidural injections. Dr Osborn gave pt a caudal epidural injection on 04/18/2014. Saw Dr. Osborn, pain management on 04/25/2014 for worsening back pain and head pain after receiving injection on 04/18/2014. Advised pt to visit the ED and get a repeat MRI. Repeat MRI done 04/26/2014: Impression: No evidence of epidural abscess or abnormal enhancement. Small broad based protrusion at L5-S1 with posterior annular tear. There has abeen a right laminectomy at this level. There is no canal stenosis or evidence of nerve root impingement. Saw Dr. Osborn on 05/24/2014: recommend non opioid and thinks she is a good candidate for spinal cord stimulator. Sees Dr Jimenez as Dr Osborn does not recommend spinal cord stimulator as she had bad reaction to injections. Saw Dr. Jimenez 06/05/2014. Discussed reviewing case internally with collegues and have her back in the near future for focused physical exam. Requested referral back to mental health as she is currently transitioning between insurance. EMG done of the right lower limb on 09/28/2014: abnormal study: findings consistent with chronic L5-S1 radiculopathy. Pt will benefit from pain control before PT. Saw pain management On 03/05/2015 Dr. Jimenez who would like to titrate her down on tramadol and fiorecet to start membrane stabilizer and short course of opioids until this begins working. 09/20/15 Eval at Pain Management, Dr Jimenez. Advised referring for aquatherapy. Conider use of membrane stabilizer. Had adverse effects with topiramate. Avoid use of lamotrigine. Consider use of lacosamide and avoid zonisamide. Pt plans to establish care with new PCP in next month. Depression 02/01/2014 Overview (10/30/2014): Talks with Bertha every week. Waiting on an appt with Dr Leggett. Pt was referred to initial evaluation. Referred by her therapist Aman Martin for psychiatric care. Was seen by Charmaine Rodgers on 10/21/2014: Started her on fluoxetine 20 mg daily and increase diazepam 10 mg daily extended release. Anxiety 02/01/2014 Displacement of intervertebr al disc, site unspecified, without myelopathy 02/01/2014 Fibromyalgia 02/01/2014 Immunizations Immunization Administration Dates Next Due HEP A-HEP B ([place]) 02/26/2014 INFLUENZA, SEASONAL, INJECTABLE 01/08/2015,03/12 TDAP 10/08/2014 Family History Medical History Relation Name Comments Cancer Maternal Aunt cervical cance r Asthma Mother Cancer Mother breast cancer Heart Problems Mother Hypertension Mother Relation Name Status Comments Father Alive Maternal Aunt Mother Alive Social History Tobacco Use Types Packs/Day Years Used Date Smoking Tobacco: Never Smokeless Tobacco: Never Alcohol Use Standard Drinks/Week Comments No 0 (1 standard drink = 0.6 oz pur e alcohol) Social Connections Answer Date Recorded Social Connections and Isolation 0 10/19/2018 Financial Resource Strain Answer Date R ecorded Financial Resource Strain 0 2018 Stress Answer Date Recorded Stress 0 10/19/2018 Physical Activity Answer Date Recorded Physical Activity 0 10/19/2018 Food Insecurity Answer Date Recorded Food 0 10/19/2018 Transportation Needs Answer Date Record ed Transportation 0 10/19/2018 Housing Stability Answer Date Recorded Housing 0 10/19/2018 Safety and Environment Answer Date Skip rded Safety 0 10/19/2018 Utilities Answer Date Recorded Utilities 0 10/19/2018 Employment Answer Date Recorded Employment 0 10/19/2018 Comments Unknown Sex and Gender Information Value Date Recorded Sex Assigned at Not on file Legal Sex Female 8:04 AM PST Gender Identity Not on file Sexual Orientation Not on file Last Filed Vital Signs Vital Sign Reading Time Taken Comments Blood Pressure 110/80 04/10/2015 3:51 PM EST Pulse 71 04/10/2015 3:51 PM EST Temperature 36.7 C (98.1 F) 04/10/2015 3:51 PM EST Respiratory Rate 17 04/10/2015 3:51 PM EST Oxygen Saturation 98% 10/08/2014 1:30 PM EDT Inhaled Oxygen Concentration - - Weight 73 kg (161 lb) 04/10/2015 3:51 PM EST Height 160 cm (5' 3 ) 03/20/2015 3:47 PM EST Body Mass Index 28.52 03/20/2015 3:47 PM EST Plan of Treatment Not on file Insurance [facility] [employer] [facility] [employer] DENTAL [facility] Care Teams [employer] Supervisor Relationship Specialty Start Date End Date Alba Faulkner PA-C [address] [place] [address] PCP - General 01/19/18
--- OUTSIDE RECORDS SUMMARY | 2024-10-31 16:38 | XMS_ITS | Clinical Summary ---
Author Organization [facility] ity Address [address] [place] [address] Care Team Providers Care Mapper Name Role Phone Unavailable Primary Care Provider Unavailabl e Social History Tobacco Use Types Packs/Day Years Used Date Smoking Tobacco: Never Smokeless Tobacco: Never Alcohol Use Standard Drinks/Week Comments Yes 0 (1 standard drink = 0.6 oz pur e alcohol) Comments Unknown Sex and Gender Information Value Date Recorded Sex Assigned at Not on file Legal Sex Female 1:57 PM EST Gender Identity Not on file Sexual Orientation Not on file Obstetrics History Plan of Treatment Health Maintenance Due Date Last Done Comments Breast Cancer Screening 1975 DTaP,Tdap,and Td Vaccines (1 - Tdap) 01/28/1995 Hepatitis B Vaccines (1 of 3 - 19+ 3-dose series) 01/28/1995 Cervical Cancer Screening: P ap Smear 01/28/1997 COVID-19 Vaccine ( - 2023-2 5 season) 2023 Depression Screening 03/01/2024 Influenza Vaccine (#1) 2024 HIB Vaccines Aged Out No longer eligi ble based on patient's age to complete this topic HPV Vaccines Aged Out No longer eligi ble based on patient's age to complete this topic Hepatitis A Vaccines Aged Out No long er eligible based on patient's age to complete this topic IPV Vaccines Aged Out No longer eligi ble based on patient's age to complete this topic MMR Vaccines Aged Out No longer eligi ble based on patient's age to complete this topic Meningococcal ACWY Vaccine Aged Out N o longer eligible based on patient's age to complete this topic Meningococcal B Vaccine Aged Out No l onger eligible based on patient's age to complete this topic Pneumococcal Vaccine: Pediat rics (0 to 5 Years) and At-Risk Patients (6 to 49 Years) Aged Out No longer eligible b ased on patient's age to complete this topic RSV Immunization Patients Un dwight 20 months Aged Out No longer eligible b ased on patient's age to complete this topic Varicella Vaccines Aged Out No longer eligible based on patient's age to complete this topic
[2024-10-31] MEDS: iohexoL 350 MG/ML 100 ML INFUS..BTL IV (18:19)
[2024-10-31 19:21] VITALS: BP 129/86; PULSE 80; RESP 17; TEMP 36.1; O2SAT 95
== END 2024-10-31 19:25 | disposition home or self-care (01) ==
PROVIDERS: Physician Assistant Medical; Emergency Provider Emergency Medicine; PCP Internal Medicine
DX: N39.0 Urinary tract infection, site not specified (principal); K59.00 Constipation, unspecified; R11.10 Vomiting, unspecified; R91.8 Other nonspecific abnormal finding of lung field; Z79.899 Other long term (current) drug therapy
CPT/HCPCS: 36410; 36415; 74018; 74177; 76937; 80053; 81001; 83690; 83735; 84702; 85025; 87086; 96374; 96375; 99284; 99285; J1171; J2405; Q9967

== ENCOUNTER → 2024-10-31 14:47 | Outpatient (BNV) | payer OTHER, SELFPAY | PROVIDERS: Emergency Provider Emergency Medicine; PCP Internal Medicine; Visit Provider Radiology Diagnostic Radiology | DX: K52.9 Noninfective gastroenteritis and colitis, unspecified (principal); R11.11 Vomiting without nausea | CPT/HCPCS: 74018; 74177 ==